=== PATIENT | female | born 1970 | race Caucasian/White ===

== ENCOUNTER 2018-04-12 08:54 | Day surgery (SDC) | payer BC ==
--- NOTE | 2018-04-02 09:21 | HP ---
Admitting History and Physical - Primary Care Physician PCP: Laura Arreaga - Admission Chief Complaint: Left breast mass x2@ 12:00 and 9:00 History of Present Illness: 47 year old premenapausal female who underwent left breast core biopsy 2013 showing fibrolipoma at 12:00. mammogram showed increasing size of left 12:00 mass. US showed mass measuring 2.5x2.9x1.6 cm. 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 Patient would also like this mass excised. History Source: Patient Limitations to Obtaining History: No Limitations - Past Surgical History Additional Past Surgical History: Colonoscopy Q2 yrs for polyp removed Breast reduction 1991 left breast US core bx 2013 and 2015 LAP for HPV precancerous lesions - Smoking History Smoking history: Never smoked Have you smoked in the past 12 months: No - Alcohol/Substance Use Hx Alcohol Use: Yes (social) Home Medications - Allergies Allergies/Adverse Reactions: Allergies Allergy/AdvReac Type Severity Reaction Status Date / Time No Known Allergies Allergy Verified 04/02/18 09:23 Family Disease History - Family Disease History Family Disease History: CA: Grandparent (mat GM melanoma), Father (CRC 71), Sister ( CRC 29) Other Family History: pat 2nd cousin ovarian ca 70. mat uncle rectal ca and lung ca 79 Physical Examination Constitutional: Yes: Well Nourished, No Distress Breast(s): Yes: Other (bilateral nodularity no masses or adenopathy palpated right breast ,2.5 cm ovoid mass left breast @ 12:00 . nodularity left retroareolar 8-9:00.) Problem List - Problems (1) Mass of left breast Code(s): N63.20 - UNSPECIFIED LUMP IN THE LEFT BREAST, UNSPECIFIED QUADRANT Assessment/Plan Left breast biopsy times two , one mammogram needle localization left breast 9: 00
[2018-04-10 10:09] VITALS: BMI 31.1
[2018-04-12 09:40] VITALS: TEMP 98.5
[2018-04-12] MEDS ORDERED: LIDOCAINE HCL 1%, 10 MG/ML (20ML VIAL) ONE (11:14)
[2018-04-12] MEDS ORDERED: BUPIVACAINE HCL/PF 0.5% (5MG/ML) 10 ML VIAL ONE (11:15)
[2018-04-12] MEDS ORDERED: LIDOCAINE HCL/PF 2% SDV 5ML VIAL ONE (11:27)
[2018-04-12] MEDS ORDERED: PROPOFOL 20 ML ONE ×2 (11:27)
[2018-04-12] MEDS ORDERED: MIDAZOLAM HCL 2 MG/2 ML SINGLE DOSE VIAL ONE (11:28)
[2018-04-12] MEDS ORDERED: ROPIVACAINE HCL 0.5% 30ML VIAL ONE (12:09)
[2018-04-12] MEDS ORDERED: LIDOCAINE HCL 1%, 10 MG/ML (20ML VIAL) INF ONE (12:28)
[2018-04-12] MEDS ORDERED: DEXTROSE 5%-0.45% SALINE 1,000 ML IV SCH (13:30)
[2018-04-12] MEDS ORDERED: ONDANSETRON 4 MG/2 ML VIAL IVPUSH PRN (13:30)
[2018-04-12] MEDS ORDERED: KETOROLAC TROMETHAMINE 30 MG/1 ML VIAL IVPUSH PRN (13:30)
--- NOTE | 2018-04-12 14:28 | HP ---
History & Physical Update - History History: No Change - Physical Physical: No Change - Assessment Assessment: No Change - Plan Plan: No Change (no change since 04/02/2018)
[2018-04-12 15:12] VITALS: BP 108/67; PULSE 73
--- NOTE | 2018-04-13 17:17 | OP ---
DATE OF OPERATION: 04/12/2018 PREOPERATIVE DIAGNOSIS: Left breast masses x2. POSTOPERATIVE DIAGNOSIS: Left breast masses x2. PROCEDURE: Left breast mass excision x2. SURGEON: Yareli Arreaga M.D. CITY DETECTIVE: Stefan Muniz ANESTHESIA: MAC with 1% lidocaine and 0.5% ropivacaine. ANESTHESIOLOGIST: Fani Wadsworth M.D. SPECIMEN: Left breast mass at 12 o'clock and 9 o'clock. DRAINS: None. ESTIMATED BLOOD LOSS: Minimal. INDICATION FOR PROCEDURE: The patient is a 47-year-old woman with a palpable mass in the left breast at 12 o'clock. This mass was consistent with a fibrolipoma imaging. Imaging also showed a mass in the left breast at 9 o'clock. This was biopsied and shown to be a fibroid adenoma. She is going to the operating room for excision of both masses. The procedure, risks and complications were discussed with her prior to surgery. Because the mass at 9 o'clock was not clearly palpable, the plan was to localize this mass prior to surgery. Also the mass at 12 o'clock had increased in size. PROCEDURE: The patient was taken to breast imaging, where she underwent localization of the mass in the left breast at 9 o'clock. She was then taken to ambulatory surgery, where informed consent was obtained, and the left breast was identified with a marker. She was taken to the operating room and placed on the operating table in the supine position. Sequential compression devices were placed on both legs. The left breast was examined, and the mass could be palpated at 12 o'clock. There was also a localizing wire in the medial breast. The left breast was prepped and draped in the usual fashion. A timeout was performed. She was sedated, and the skin was infiltrated with 1% lidocaine. A left periareolar incision was made from 9 to 12 o'clock. The incision was deepened using electrocautery. The tissue around the localizing wire was mobilized using electrocautery. A mass could be felt at the tip of the needle. Once the mass was officially mobilized, the needle was disassembled, and the wire was brought out from the operative field. The mass was sent to radiology which confirmed the clip was included. In the meantime, attention was turned to removal of the mass at 12 o'clock. The tissue was mobilized with electrocautery. The lipomatous mass was encountered and it was mobilized bluntly and removed in its entirety. In appearance it was a fatty mass with a benign appearance. The mass was placed in formalin and sent to pathology. The wound was irrigated and inspected for hemostasis. The skin was infiltrated with 0.5% ropivacaine. There was no evidence of bleeding. The deep tissue was closed with interrupted sutures of 3-0 Vicryl. The dermis was closed with interrupted stitches of 3-0 Vicryl. The skin was closed with a running subcuticular closure of 4-0 Biosyn. The wounds were cleaned and covered with Steri-Strips and a sterile gauze dressing. The patient tolerated the procedure well. At the end of the procedure, all sponge and instrument counts were correct. She was taken to the recovery area in satisfactory condition. YARELI ARREAGA M.D. [id number]
--- NOTE | 2018-04-18 10:11 | PATH ---
Surgical Pathology Report Patient Name: LANI MEDRANO [facility]. Rec. #: [id number] /Age/Gender: 1970 (Age: 47) / F Account: [id number] Location: [facility] SURGICAL Taken: 04/12/2018 Received: 04/12/2018 Reported: 04/18/2018 Physicians: Laura Arreaga M.D. Specimen(s) Received A: LEFT BREAST MASS 9:00 B: LEFT BREAST MASS 12:00 Clinical History Left breast mass x2 Final Diagnosis A. BREAST, LEFT, MASS, 9:00, EXCISION: FIBROADENOMA. B. BREAST, LEFT, MASS, 12:00, EXCISION: BENIGN BREAST TISSUE WITH FIBROADENOMATOID CHANGES, INCLUDING STROMAL FIBROSIS, AND MICROCYSTS. Electronically Signed Modesta Perez M.D. Gross Description A. Received fresh on an AccuGrid labeled "left breast mass," is a 3.7 x 3.1 x 1.4 cm portion of fibroadipose tissue with a needle localization wire present. There is a short suture marking the superior aspect and a long suture marking the lateral aspect of the specimen, per the surgeon. There is no skin or nipple present. The specimen is inked as follows: Superior and lateral blue; inferior green; medial yellow; anterior red; deep black. The specimen is serially sectioned from lateral to medial. Sectioning reveals a 0.7 x 0.7 x 0.5 cm cueto, well circumscribed, firm mass abutting the lateral and anterior margins. The mass is 0.4 cm from the deep margin, 0.6 cm from the inferior margin and 1.0 cm from the superior margin. [employer] sections are submitted in 4 cassettes as follows: 1-mass with lateral margin; 2-full face section of mass with superior, inferior, anterior and deep margins; 3-additional mass with inferior, anterior and deep margins; 4-medial margin. Total formalin fixation time: Approximately 6 hours B. Received in formalin labeled "left breast mass 12:00," is a 3.7 x 2.8 x 2.3 cm unoriented portion of fibroadipose tissue. There is no needle localization wire present. There is no skin or nipple present. The specimen is inked blue and serially sectioned. Sectioning reveals a 2.8 x 2.5 x 2.3 cm cueto, rubbery mass. The cut surface of the mass reveals homogeneous cueto parenchyma. No areas of hemorrhage or necrosis are identified. [employer] sections are sequentially submitted in 5 cassettes. 04/12/201804/12/2018
== END 2018-04-12 15:10 | disposition home or self-care (01) ==
LOC: JASU-SURG 08:54
PROVIDERS: ATTEND Surgery
PROC: 0HBU0ZX Excision of Left Breast, Open Approach, Diagnostic (ICD-10-PCS; principal; 2018-04-12 12:00)
DX: D24.2 Benign neoplasm of left breast (principal); N60.32 Fibrosclerosis of left breast
CPT/HCPCS: 19281; 84703; 88307-TC